=== PATIENT | female | born 2000 | race Caucasian/White ===

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

== ENCOUNTER 2019-06-09 23:36 | Emergency (ER) | payer OTHER ==
[~2019-06-09] VITALS: Ht 165.1 cm; Wt 73.0 kg
[~2019-06-09 23:36] MED LIST: ACET500C5 PO; AMOX500C2 PO; IBUP-1541 PO; PREN-93 PO
[2019-06-09 23:40] VITALS: Ht 165.1 cm; Wt 73.0 kg
--- NOTE | 2019-06-10 01:48 | ERD ---
ER Documentation Chief Complaint Chief Complaint fever john cough congestion since yesterday 4 months HPI This is a 18-year-old female presents emergency department with complaints of fever, headache, congestion for about a day. Stated that she is 4 months . Denies vaginal bleeding. Denies pelvic pain. Denies pelvic cramping. LMP: 02/06/2018. RADHA: 11/17/2019. G1, . Denies headache, head injury, loss of consciousness, dizziness, neck pain, neck stiffness, throat pain, difficulty swallowing, difficulty breathing lying flat, shoulder pain, chest pain, back pain, abdominal pain, nausea, vomiting, constipation, diarrhea, urinary symptoms, loss of bowel and bladder control, trauma, injury, falls, difficulty walking due to pain, numbness or tingling sensation, calf pain, recent travel, recent major surgery in the last 3 weeks, calf pain, recent long travel, recent exposure to any illness, recent antibiotic use in the last 3 months, fever, chills, seizures. Past medical history: Denies. Surgical history: Denies. Social: Denies smoking, use of alcoholic beverages, use of illegal drugs. ROS All systems reviewed and are negative except as per history of present illness. Medications Home Meds Active Scripts Vit No.124/Iron/FA ( Vitamin Tablet) 1 Each Tablet, 1 EACH PO DAILY, #30 TAB Prov:ARACELIILALAW STEPHENS F 06/10/19 Amoxicillin* (Amoxicillin*) 500 Mg Cap, 500 MG PO TID for 10 Days, CAP Prov:ARACELIILABAN,NASIRAR F 06/10/19 Acetaminophen* (Tylophen*) 500 Mg Capsule, 1 CAP PO Q6H PRN for PAIN AND OR ELEVATED TEMP, #20 CAP Prov:ARACELIILABANLAW F 06/10/19 Ibuprofen* (Ibuprofen*) 400 Mg Tablet, 400 MG PO Q6H PRN for PAIN, #30 TAB Prov:CARRIE CUMMINGS PA-C 07/27/17 Allergies Allergies: Coded Allergies: No Known Allergy (Unverified , 06/10/19) PMhx/Soc Medical and Surgical Hx: pt denies Medical Hx, pt denies Surgical Hx Hx Alcohol Use: No Hx Substance Use: No Hx Tobacco Use: No Smoking Status: Never smoker Physical Exam Vitals Vital Signs Date Temp Pulse Resp B/P (MAP) Pulse Ox O2 O2 Flow FiO2 Time Delivery Rate 06/10/19 98.4 87 19 97/58 (71) 97 Room Air 03:49 06/09/19 99.4 115 18 112/67 98 23:40 (82) Physical Exam Head: Atraumatic Eyes: Normal Conjunctiva ENT: Normal External Ears, Nose and Mouth. Bilateral ears: TMs are not erythematous. No bleeding. No discharge. No hearing loss. No mastoid tenderness. Nose: There is frontal or maxillary sinus tenderness palpation. Throat: Uvula is in midline and nondisplaced. Tonsils are +1 bilaterally withou t redness and without exudates. Tolerating secretions. Patent airway. Speaks full and clear sentences. No tripoding. Neck: Full range of motion. No meningismus. No nuchal rigidity. No signs of meningeal irritation. Resp: Clear to auscultation bilaterally. No accessory muscle use in breathing. Cardio: Regular rate and rhythm, no murmurs Abd: Soft, non tender, non distended. Normal bowel sounds. Negative Midd[place] sign. No CVA tenderness. Skin: No petechiae or rashes. Color appears normal for ethnicity. No skin tenting. No signs of severe dehydration. Back: No midline or flank tenderness Ext: No cyanosis, or edema Neur: Awake and alert. No neurological deficits. Psych: Normal Mood and Affect Results 24 hrs Laboratory Tests Test 06/10/19 03:30 Bedside Urine pH (LAB) 7.0 Bedside Urine Protein (LAB) Negative Bedside Urine Glucose (UA) Negative Bedside Urine Ketones (LAB) Negative Bedside Urine Blood Negative Bedside Urine Nitrite (LAB) Negative Bedside Urine Leukocyte Esterase (L Trace Current Medications Medications Dose Sig/Kade Start Time Status Last (Trade) Ordered Route PRN Stop Time Admin Dose Reason Admin 650 mg ONCE ONCE 06/10/19 DC 06/10/19 Acetaminophen PO 02:00 02:00 (Tylenol 06/10/19 02:01 Tab) Procedures/MDM Diagnostic tests: POC dipstick: Reviewed. Treatment: Tylenol. Re-evaluation: Denies headache, neck pain, chest pain, back pain, abdominal pain, pelvic pain. Denies vaginal bleeding. Stated that she feels much better at this time and that she is ready to go home. Stated that she is comfortable to go home. Differential diagnosis I have low suspicion for sepsis, meningitis, mastoiditis. Final diagnosis: Sinusitis. This case was discussed with my supervising physician, Dr. Al Mccoy who agreed with my medical decision making. Prescription: Amoxicillin. Tylenol. vitamins. Follow-up with PCP in the next 24-48 hours. Follow-up with mattress stripper in the next 24 to 48 hours. Come back here in the emergency department for any new symptoms or any worsening symptoms. All questions and concerns were answered. Patient and family members verbalized understanding and agreed with plan of care. Hemodynamically stable on discharge. Disclaimer: Inadvertent spelling and grammatical errors are likely due to EHR/dictation software use and do not reflect on the overall quality of patient care. Also, please note that the electronic time recorded on this note does not necessarily reflect the actual time of the patient encounter. Departure Diagnosis: Primary Impression: Sinusitis Condition: Stable Additional Instructions: Follow-up with PCP in the next 24-48 hours. Follow-up with mattress stripper in the next 24 to 48 hours. Come back here in the emergency department for any new symptoms or any worsening symptoms. LAW FERRIS Jun 10, 2019 01:48
[2019-06-10] MEDS ORDERED: ACETAMINOPHEN 325 MG TAB PO ONE (02:00)
[2019-06-10 03:49] VITALS: BP 97/58; PULSE 87; RESP 19
== END 2019-06-10 03:50 | disposition home or self-care (01) ==
LOC: FTE 23:36
DX: O99.511 Diseases of the respiratory system complicating pregnancy, first trimester (principal); J32.9 Chronic sinusitis, unspecified; Z3A.00 Weeks of gestation of pregnancy not specified
CPT/HCPCS: 81003; 99282